=== PATIENT | female | born 1975 | race Hispanic/Latino ===

== ENCOUNTER 2017-04-08 02:04 | Emergency (ER) | payer SELFPAY ==
[2017-04-08] MEDS ORDERED: Fentanyl 100 MCG/2 ML VIAL ONE (02:37)
[2017-04-08] MEDS ORDERED: Ondansetron HCl/PF 4 MG/2 ML Vial ONE (02:37)
[2017-04-08 02:40] LABS: #Basophils 0.1 thou/uL (0.0-0.2); #Eosinphils 0.4 thou/uL (0.0-0.7); #Lymphocytes 3.5 thou/uL (1.20-3.40); #Monocytes 0.8 thou/uL (0.11-0.59); #Neutrophils 9.5 thou/uL (1.40-6.50); %Basophils 0.6 % (0.0-1.0); %Eosinophils 2.6 % (0.0-10.0); %Lymphocytes 24.7 % (21.0-51.0); %Monocytes 5.7 % (0.0-10.0); Hematocrit 36.1 % (36.0-47.0); Mean Platelet Volume 7.8 fL (7.4-10.4); Red Blood Cell (RBC) Count 4.05 mill/uL (4.20-5.40); White Blood Cell (WBC) Count 14.3 thou/uL (4.8-10.8)
[2017-04-08 02:54] LABS: ALT (SGPT) 22 U/L (8-55); AST (SGOT) 22 U/L (5-34); Alkaline Phosphatase 92 U/L (40-150); Anion Gap 14 mmol/L (10-20); BUN (Urea Nitrogen) 20 mg/dL (7.0-18.7); Bilirubin, Total 0.4 mg/dL (0.2-1.2); CK (CPK) 325 U/L (29-168); Calc. Creatinine Clearance 0 mL/min (70-130); Calcium 8.5 mg/dL (7.8-10.44); Carbon Dioxide 22 mmol/L (22-29); Chloride 107 mmol/L (98-107); Estimated GFR-MDRD Greater than 90; Globulin 3.2 g/dL (2.4-3.5); Lipase 26 U/L (8-78); Protein, Total 6.9 g/dL (6.0-8.3)
[2017-04-08 02:56] LABS: Troponin I Less than 0.010 ng/mL (< 0.028)
--- NOTE | 2017-04-08 08:20 | RAD ---
PORTABLE UPRIGHT FRONTAL CHEST RADIOGRAPH: Date: 04-08-17 Comparison: 11-25-16 History: Severe right upper quadrant pain. FINDINGS: No pneumothorax, pleural fluid, focal consolidation or alveolar edema. Heart and mediastinal contours are grossly unremarkable. No acute osseous abnormality. IMPRESSION: No acute findings. POS: [facility]
--- NOTE | 2017-04-08 09:10 | ULT ---
PRELIMINARY REPORT/[facility]/EMERGENCY AFTER HOURS PROCEDURE: EXAM: US Abdomen Limited, Right Upper Quadrant EXAM DATE/TIME: Exam ordered 04/08/2017 2:40 AM CLINICAL HISTORY: 41 years old, female; Pain and signs and symptoms; Nausea and vomiting; Abdominal pain; Localized; Ri ght upper quadrant (ruq) TECHNIQUE: Real-time ultrasound of the right upper quadrant with image documentation. COMPARISON: No relevant prior studies available. FINDINGS: Liver: Unremarkable. No mass. No intrahepatic bile duct dilation. Gallbladder: Normal contracted gallbladder. Sonographic Fung sign negative. No gallstones. Common bile duct: Unremarkable as visualized. No stones. No dilation. Pancreas: Unremarkable as visualized. Right kidney: Unremarkable. No stones. No solid mass. No hydronephrosis. IMPRESSION: No acute findings. Thank you for allowing us to participate in the care of your patient. Dictated and Authenticated by: Ja Gonzalez MD 04/08/2017 3:07 AM Central Time ([place] & [place]) FINAL REPORT RIGHT UPPER QUADRANT ULTRASOUND: Date: 04-08-17 Comparison: None. History: Right upper quadrant pain with nausea and vomiting. FINDINGS: Imaged pancreatic parenchyma appears unremarkable. There is no focal liver lesion or intrahepatic biliary dilatation noted. Right kidney measures 11.9 cm in craniocaudal dimension and demonstrates no stone, hydronephrosis or mass. Gallbladder is contracted. Gallbladder wall does not appear significantly thickened given the degree of contraction. The common duct measures 3 mm within normal limits. No gallstones or pericholecystic fluid. The registered associate reports a negative Fung's sign. IMPRESSION: No evidence for cholelithiasis, cholecystitis, or biliary dilatation. This report is in agreement with the preliminary [facility] report. Code QA. POS: [facility]
--- NOTE | 2017-04-08 09:12 | CT ---
PRELIMINARY REPORT/[facility]/EMERGENCY AFTER HOURS PROCEDURE: EXAM: CT Abdomen and Pelvis With Intravenous Contrast EXAM DATE/TIME: Exam ordered 04/08/2017 3:28 AM CLINICAL HISTORY: 41 years old, female; Pain; Abdominal pain; Localized; Right upper quadrant (ruq); Patient HX: . . . Pt with 2 hour history of severe ruq abdominal pain. Pain is sharp, constant, non radiating and 10/10 . 2 episodes of non bloody emesis since pain started. Patient tolerated po intake earlier today. Srinivasan es diarrhea. Iv contrast only TECHNIQUE: Axial computed tomography images of the abdomen and pelvis with intravenous contrast. Coronal reformatted images were created and reviewed. COMPARISON: US Gallbladder RUQ 2017-04-08 02:40 FINDINGS: Lower thorax: No acute findings. ABDOMEN: Liver: Unremarkable. No mass. Gallbladder and bile ducts: Normal contracted gallbladder. No calcified stones. No ductal dilation. Pancreas: Unremarkable. No mass. No ductal dilation. Spleen: Unremarkable. No splenomegaly. Adrenals: Unremarkable. No mass. Kidneys and ureters: 1 cm exophytic right renal lesion measures 30 Hounsfield units and is indetermin ate, likely a hyperdense cyst. No hydronephrosis. Stomach and bowel: Unremarkable. No obstruction. No mucosal thickening. Appendix: Normal appendix. PELVIS: Bladder: Unremarkable. No mass. Reproductive: Tampon in place in the vagina. ABDOMEN and PELVIS: Intraperitoneal space: Unremarkable. No free air. No significant fluid collection. Bones/joints: No acute fracture. No dislocation. Soft tissues: Unremarkable. Vasculature: Unremarkable. No abdominal aortic aneurysm. Lymph nodes: Unremarkable. No enlarged lymph nodes. IMPRESSION: No acute findings. Thank you for allowing us to participate in the care of your patient. Dictated and Authenticated by: Ja Gonzalez MD 04/08/2017 3:46 AM Central Time ([place] & [place]) FINAL REPORT EMERGENT AFTER HOURS CT ABDOMEN AND PELVIS WITH IV CONTRAST: Date: 04-08-17 History: Severe right upper quadrant abdominal pain. Patient states pain is sharp and constant and is non-radiating. IMPRESSION: 1. There is an increased density exophytic superior pole right renal lesion. This lesion was also see n on a noncontrasted CT abdomen and pelvis in 2012, 2013, as well as 2014. A similar measurement was obtained on prior exams. This is indeterminate due to very small size, but has not significantly bliss ged in size when compared to prior exams. 2. No acute findings are seen. 3. Findings are in agreement with preliminary report by [facility]. POS: [facility]
== END 2017-04-08 04:13 | disposition home or self-care (01) ==
LOC: ERS 02:04
DX: R10.11 Right upper quadrant pain (principal); G43.909 Migraine, unspecified, not intractable, without status migrainosus; F41.9 Anxiety disorder, unspecified; F32.9 Major depressive disorder, single episode, unspecified
CPT/HCPCS: 71010; 74177; 76705; 80053; 82553; 83690; 84484; 84703; 85025; 93005; 96361; 96374; 96375; J2405; J3010

== ENCOUNTER 2017-07-09 08:20 | Emergency (ER) | payer SELFPAY | END 2017-07-09 10:25 | disposition home or self-care (01) | LOC: ERS 08:20 | DX: N61.0 Mastitis without abscess (principal); N60.02 Solitary cyst of left breast; G43.909 Migraine, unspecified, not intractable, without status migrainosus; F41.9 Anxiety disorder, unspecified; F32.9 Major depressive disorder, single episode, unspecified | CPT/HCPCS: 99283 ==

== ENCOUNTER 2017-11-06 20:54 | Emergency (ER) | payer SELFPAY ==
[2017-11-06] MEDS ORDERED: Lorazepam 2 MG/ML VIAL ONE (21:17)
[2017-11-06 22:04] LABS: #Basophils 0.1 thou/uL (0.0-0.2); #Eosinphils 0.1 thou/uL (0.0-0.7); #Lymphocytes 3.2 thou/uL (1.20-3.40); #Monocytes 0.7 thou/uL (0.11-0.59); #Neutrophils 7.1 thou/uL (1.40-6.50); %Basophils 0.7 % (0.0-1.0); %Eosinophils 0.8 % (0.0-10.0); %Lymphocytes 28.9 % (21.0-51.0); %Monocytes 6.1 % (0.0-10.0); %Neutrophils 63.6 % (42.0-75.0); Hemoglobin 14.2 g/dL (12.0-16.0); Mean Corpuscular HGB CONC 32.9 g/dL (32.0-36.0); Mean Corpuscular Hemoglobin 27.5 pg (27.0-31.0); Mean Corpuscular Volume 83.7 fL (78.0-98.0); Mean Platelet Volume 8.1 fL (7.4-10.4); Platelet Count 300 thou/uL (130-400); Red Blood Cell (RBC) Count 5.16 mill/uL (4.20-5.40); White Blood Cell (WBC) Count 11.2 thou/uL (4.8-10.8)
[2017-11-06 22:16] LABS: ALT (SGPT) 26 U/L (8-55); AST (SGOT) 21 U/L (5-34); Albumin 4.5 g/dL (3.5-5.0); Alkaline Phosphatase 91 U/L (40-150); Anion Gap 14 mmol/L (10-20); BUN (Urea Nitrogen) 12 mg/dL (7.0-18.7); Bilirubin, Total 1.4 mg/dL (0.2-1.2); Calc. Creatinine Clearance 0 mL/min (70-130); Calcium 9.4 mg/dL (7.8-10.44); Carbon Dioxide 22 mmol/L (22-29); Chloride 107 mmol/L (98-107); Estimated GFR-MDRD 90; Globulin 3.6 g/dL (2.4-3.5); Glucose 96 mg/dL (70-105); Lipase 7 U/L (8-78); Potassium 3.3 mmol/L (3.5-5.1); Protein, Total 8.1 g/dL (6.0-8.3); Sodium 140 mmol/L (136-145)
[2017-11-06 22:17] LABS: CKMB 1.8 ng/mL (0-6.6); Troponin I Less than 0.010 ng/mL (< 0.028)
[2017-11-06 22:24] LABS: Bilirubin Small (Negative); Blood, Urine Negative (Negative); Clarity CLEAR (Clear); Glucose, Urine (Dipstick) Negative (Negative); Leukocyte Small (Negative); Nitrite Negative (Negative); Protein, Urine (Dipstick) 30 mg/dL (Neg-Trace); Specific Gravity, Urine 1.034 (1.002-1.036)
[2017-11-06 22:26] LABS: Bacteria/HPF None Seen HPF (None Seen)
[2017-11-06 22:28] LABS: Pathc Cast-AUWi Flag 3.48 (0-2.49)
[2017-11-06 22:34] LABS: Crystals/HPF None Seen HPF (Negative); Hyaline Casts/LPF 0-3 HYALINE CAST LPF (0-3 Hyaline); Yeast-All Forms None Seen HPF (None Seen)
--- NOTE | 2017-11-06 22:35 | RAD ---
RADIOGRAPH CHEST 1 VIEW: 11/06/17 HISTORY: 42-year-old female with dyspnea, chest pain, and cough. FINDINGS: There are no air space densities, pulmonary edema, pneumothorax, or cardiomegaly. The lateral costop hrenic angles are sharp. IMPRESSION: No acute cardiopulmonary findings. oscar [] POS: [facility]
== END 2017-11-07 00:01 | disposition home or self-care (01) ==
LOC: EEVIPCON 20:54 → ERS 20:54
DX: R07.89 Other chest pain (principal); N39.0 Urinary tract infection, site not specified; G43.909 Migraine, unspecified, not intractable, without status migrainosus; F41.9 Anxiety disorder, unspecified; F32.9 Major depressive disorder, single episode, unspecified
CPT/HCPCS: 71045; 80053; 81003; 81015; 82553; 83690; 84484; 85025; 93005; J2060

== ENCOUNTER 2018-07-05 20:30 | Inpatient (IN) | payer SELFPAY ==
[2018-07-05 21:27] LABS: #Lymphocytes 0.8 thou/uL (1.20-3.40); #Monocytes 0.8 thou/uL (0.11-0.59); %Basophils 0.4 % (0.0-1.0); %Eosinophils 0.1 % (0.0-10.0); %Lymphocytes 9.4 % (21.0-51.0); %Monocytes 9.3 % (0.0-10.0); %Neutrophils 80.8 % (42.0-75.0); Hemoglobin 12.8 g/dL (12.0-16.0); Mean Corpuscular HGB CONC 32.2 g/dL (32.0-36.0); Mean Corpuscular Hemoglobin 27.1 pg (27.0-31.0); Mean Platelet Volume 9.2 fL (7.4-10.4); Platelet Count 238 thou/uL (130-400); Red Blood Cell (RBC) Count 4.72 mill/uL (4.20-5.40); White Blood Cell (WBC) Count 8.6 thou/uL (4.8-10.8)
[2018-07-05] MEDS ORDERED: Ketorolac Tromethamine 30 MG/ML VIAL ONE (21:28)
--- NOTE | 2018-07-05 21:59 | RAD ---
PA AND LATERAL CHEST: HISTORY: Cough. Headache. Sore throat. Back pain. COMPARISON: 11/06/2017 FINDINGS: The heart size is normal. The lungs are well expanded without focal areas of consolidation, pneumoth oraces, or pleural effusions. No acute osseous abnormalities are seen. IMPRESSION: No radiographic evidence of acute cardiopulmonary process. POS: [facility]
[2018-07-05] MEDS ORDERED: Acetaminophen 500 MG TAB ONE (22:19)
[2018-07-05 22:35] LABS: Albumin 3.3 g/dL (3.5-5.0)
[2018-07-05 22:36] LABS: Chloride 110 mmol/L (98-107); Potassium 3.2 mmol/L (3.5-5.1); Sodium 137 mmol/L (136-145)
[2018-07-05 22:37] LABS: Calcium 7.5 mg/dL (7.8-10.44)
[2018-07-05 22:38] LABS: Globulin 2.4 g/dL (2.4-3.5); Glucose 91 mg/dL (70-105); Protein, Total 5.7 g/dL (6.0-8.3)
[2018-07-05 22:39] LABS: Anion Gap 13 mmol/L (10-20); Bilirubin, Total 0.3 mg/dL (0.2-1.2); Carbon Dioxide 17 mmol/L (22-29)
[2018-07-05 22:40] LABS: Alkaline Phosphatase 66 U/L (40-150)
[2018-07-05 22:41] LABS: Calc. Creatinine Clearance 0 mL/min (70-130); Estimated GFR-MDRD Greater than 90
[2018-07-05 22:42] LABS: BUN (Urea Nitrogen) 9 mg/dL (7.0-18.7)
[2018-07-05 22:43] LABS: AST (SGOT) 12 U/L (5-34)
[2018-07-05 22:44] LABS: ALT (SGPT) 9 U/L (8-55)
[2018-07-06] MEDS ORDERED: cefTRIAXone\\ROCEPHIN 2 GM VIAL ONE (01:48)
[2018-07-06] MEDS ORDERED: Oseltamivir 75 MG CAP PO SCH (02:00)
[2018-07-06 02:36] VITALS: BMI 31.8
[2018-07-06] MEDS: Acetaminophen 325 MG TAB PO PRN ×4 (02:54→20:16)
--- NOTE | 2018-07-06 09:05 | CT ---
PRELIMINARY REPORT/[facility]/EMERGENTY AFTER-HOURS PROCEDURE CT Head Without Contrast EXAM DATE/TIME: 07/06/2018 12:12 AM CLINICAL HISTORY: 43 years old, female; Signs and symptoms; Altered mental status/memory loss; Confusion or disorientat ion; Patient HX: F43 presents to the ed for evaluation of flu-like symptoms for he past x2 days. PT. States symptoms are associated with sore throat, rhinorrheas, ROGERS, body aches and back pain. PT. Reports taking ibuprofen without relief. PT. Also reports falling a couple days ago and now has pain shooting from left hip down to her foot. PT. Denies any recent travels or positive ill cont acts TECHNIQUE: Axial computed tomography images of the head/brain without contrast. COMPARISON: No relevant prior studies available. FINDINGS: Brain: Normal. Ventricles: Normal. Bones/joints: Normal. Sinuses: Frontal, ethmoid, and bilateral maxillary sinus disease. Mastoid air cells: Normal as visualized. Soft tissues: Unremarkable. IMPRESSION: No acute intracranial abnormality. Thank you for allowing us to participate in the care of your patient. Dictated and Authenticated by: Jason Sandoval MD 07/06/2018 12:47 AM Central Time ([place] & [place]) FINAL REPORT EMERGENCY AFTER HOURS CT BRAIN WITHOUT CONTRAST: Date: 07/06/18 FINDINGS/IMPRESSION: I agree with the findings and impression given in the preliminary report per [facility] physician. No evide nce of acute intracranial abnormality. POS: [facility]
[2018-07-06] MEDS: Azithromycin 500 MG in Sodium Chloride 0.9% 250 ML 250 ML IVPB SCH (11:49)
[2018-07-06 12:20] LABS: #Basophils 0.1 thou/uL (0.0-0.2); #Lymphocytes 1.3 thou/uL (1.20-3.40); #Monocytes 0.7 thou/uL (0.11-0.59); #Neutrophils 3.4 thou/uL (1.40-6.50); %Eosinophils 0.1 % (0.0-10.0); %Lymphocytes 23.2 % (21.0-51.0); %Monocytes 13.1 % (0.0-10.0); %Neutrophils 61.7 % (42.0-75.0); Hemoglobin 11.8 g/dL (12.0-16.0); Mean Corpuscular Hemoglobin 27.2 pg (27.0-31.0); Mean Corpuscular Volume 84.9 fL (78.0-98.0); Mean Platelet Volume 8.6 fL (7.4-10.4); Platelet Count 220 thou/uL (130-400); RBC Distribution Width 14.5 % (11.5-14.5); Red Blood Cell (RBC) Count 4.33 mill/uL (4.20-5.40); White Blood Cell (WBC) Count 5.4 thou/uL (4.8-10.8)
[2018-07-06] MEDS ORDERED: Diazepam 5 MG TAB PO PRN (12:35)
[2018-07-06 12:41] LABS: ALT (SGPT) 8 U/L (8-55); AST (SGOT) 13 U/L (5-34); Albumin 3.4 g/dL (3.5-5.0); Alkaline Phosphatase 67 U/L (40-150); Anion Gap 12 mmol/L (10-20); BUN (Urea Nitrogen) 6 mg/dL (7.0-18.7); Bilirubin, Direct 0.2 mg/dL (0.1-0.3); Bilirubin, Total 0.3 mg/dL (0.2-1.2); Calc. Creatinine Clearance 184 mL/min (70-130); Calcium 8.1 mg/dL (7.8-10.44); Carbon Dioxide 21 mmol/L (22-29); Chloride 109 mmol/L (98-107); Estimated GFR-MDRD Greater than 90; Globulin 2.5 g/dL (2.4-3.5); Glucose 105 mg/dL (70-105); Protein, Total 5.9 g/dL (6.0-8.3); Sodium 139 mmol/L (136-145)
[2018-07-06] MEDS ORDERED: Diazepam 5 MG TAB PO SCH (12:45)
[2018-07-06] MEDS ORDERED: Thiamine HCl 200 MG/2 ML VIAL IM SCH (12:45)
[2018-07-06 12:59] LABS: Syphilis Antibody Nonreactive (Nonreactive); Syphilis Antibody Index 0.06 S/CO (<1.00 Non-Reactive)
[2018-07-06 13:30] LABS: Medtox Reader # READER 1
[2018-07-06 13:31] LABS: Amphetamine Detected (NotDetected); Barbiturates Screen Not Detected (NotDetected); Benzodiazepine Screen Not Detected (NotDetected); Cocaine Metabolite Screen Not Detected (NotDetected); Medtox Control Line Valid? VALID (VALID); Methadone Not Detected (NotDetected); Methamphetamine Detected (NotDetected); Opiate Screen Not Detected (NotDetected); Oxycodone Screen Not Detected (NotDetected); Phencyclidine (PCP) Not Detected (NotDetected); THC/Cannabinoid Screen Not Detected (NotDetected); Tricyclic Screen Not Detected (NotDetected)
[2018-07-06] MEDS ORDERED: Potassium Chloride 20 MEQ TAB PO SCH (15:45)
--- NOTE | 2018-07-06 15:59 | HP ---
PRIMARY CARE PROVIDER: None. CHIEF COMPLAINT: Cough. HISTORY OF PRESENT ILLNESS: Ms. Philip is a pleasant 43-year-old lady, who was seen at [facility] on July 06, 2018. The patient is tearful at times and appears anxious. She reports that 2 days ago developed sore throat, rhinorrhea, headache and body aches. She denies any sick contacts. She is unable to describe headache and body aches further. The patient also reports that her cough is productive of greenish sputum over the last 2 days. REVIEW OF SYSTEMS: All other systems reviewed and found to be negative. PAST MEDICAL HISTORY: Migraines. SURGICAL HISTORY: section and bilateral breast surgery. PSYCHIATRIC HISTORY: Anxiety and depression. SOCIAL HISTORY: The patient is a former tobacco user. Her family reports that she drinks alcohol on a regular basis and also uses recreational drugs such as K2. FAMILY HISTORY: No family history of premature coronary artery disease. ALLERGIES: MORPHINE. CURRENT MEDICATIONS: None. PHYSICAL EXAMINATION: GENERAL: On examination, Ms. Philip is awake and alert, tearful. VITAL SIGNS: Pressure is 147/85, pulse 74, respiratory rate 20, and oxygen saturation 95% on room air. She is afebrile. EYES: No scleral icterus. No conjunctival pallor. ENT: Moist mucosal membranes. No oropharyngeal erythema or exudates. NECK: Supple, nontender, trachea is midline. RESPIRATORY: Accessory muscles of breathing are not active. Chest wall movements are symmetric bilaterally. Lungs are clear to auscultation without wheeze, rhonchi, or crepitations. CARDIOVASCULAR: S1 and S2 are heard, regular. Peripheral pulses palpable. No carotid bruit. No pericardial rub. ABDOMEN: Soft and nontender. Bowel sounds are heard. No hepatomegaly. No splenomegaly. SKIN: No rashes or subcutaneous nodules. LYMPHATIC: No cervical lymphadenopathy. NEUROLOGIC: Cranial nerves 2 through 12 intact, deep tendon reflexes 2+. MUSCULOSKELETAL: Power is 5/5 in all four extremities. PSYCHIATRIC: Normal mood and normal affect. The patient is oriented to person, place, and time. LABORATORY DATA: Ms. Philip's labs and investigations were reviewed. She had a chest x-ray, which did not show any pulmonary infiltrates. She also had a noncontrast CT scan of the brain, which did not show any acute intracranial abnormality. She has normal white count, normal hemoglobin, normal platelet count, normal sodium, decreased potassium of 3.2, creatinine 0.58, decreased albumin of 3.3, urine drug screen that is positive for amphetamines and methamphetamines and nonreactive syphilis serology. She had influenza screen, which is positive for influenza A virus. ASSESSMENT AND PLAN: Ms. Philip is a pleasant 43-year-old lady, who was seen at [facility] on July 06, 2018. Her problem list includes: 1. Influenza A infection: Ms. Philip is presenting with influenza A infection, for which she is being admitted to the hospital. We will continue her on Tamiflu. We will provide intravenous hydration. We will also start her on empiric antibiotics because of the possibility of superimposed infection, given her history of greenish sputum. 2. History of alcohol abuse: The patient will be started on ASE protocol. We will also start her on folic acid and multivitamins. We will also start her on thiamine. 3. Hypokalemia: We will replace potassium and recheck. 4. Recreational drug use: The patient has been counseled regarding cessation of alcohol and recreational drugs. 5. Ms. Philip is also presenting with acute metabolic encephalopathy. The patient was reportedly confused while in the emergency room. It is unclear whether acute metabolic encephalopathy was secondary to infection or recreational drug use. We will continue to monitor. LEVEL OF RISK: Moderate. LEVEL OF COMPLEXITY: Moderate. Job ID: [id number]
[2018-07-06] MEDS: Sodium Chloride 0.9% 1,000 ML IV SCH (16:01)
[2018-07-06 19:07] LABS: Pregnancy Test - Urine (BHCG) Negative (Negative); Pregu Control Background? CLEAR/WHITE (CLR/WHITE); Pregu Control Bar Appear? YES (CONTROL BAR); Specific Gravity 1.015 (1.002-1.036)
[2018-07-06] MEDS: Oseltamivir 75 MG CAP PO SCH (20:16)
[2018-07-06] MEDS: Ondansetron PF 4 MG/2 ML Vial IVP PRN (20:17)
[2018-07-07] MEDS: cefTRIAXone\\ROCEPHIN 1 GM in Sodium Chloride 0.9% 100 ML IVPB SCH (01:05)
[2018-07-07] MEDS: Acetaminophen 325 MG TAB PO PRN ×2 (01:59→20:49)
[2018-07-07] MEDS ORDERED: Diazepam 5 MG TAB PO PRN (04:00)
[2018-07-07] MEDS: Sodium Chloride 0.9% 1,000 ML IV SCH ×3 (05:41→20:58)
[2018-07-07] MEDS: Oseltamivir 75 MG CAP PO SCH ×2 (07:53→20:48)
[2018-07-07] MEDS: Folic Acid 1 MG TAB PO SCH (07:54)
[2018-07-07] MEDS: Magnesium Oxide 400 MG TAB PO SCH (07:54)
[2018-07-07] MEDS: Multivitamin W/ Minerals 1 TAB PO SCH (07:54)
[2018-07-07] MEDS: Thiamine 100 MG TAB PO SCH (07:54)
[2018-07-07] MEDS: Ondansetron PF 4 MG/2 ML Vial IVP PRN ×2 (07:55→20:49)
[2018-07-07] MEDS: Potassium Chloride 20 MEQ TAB PO SCH ×2 (09:09→11:53)
[2018-07-07] MEDS: Azithromycin 500 MG in Sodium Chloride 0.9% 250 ML 250 ML IVPB SCH (11:50)
--- NOTE | 2018-07-07 13:46 | PDOC.PN ---
- Subjective Encounter Start Date: 07/07/18 Encounter Start Time: 09:00 Pt seen for followup re: influenza A infection. More calm today, reports cough , sputum. - Objective MAR Reviewed: Yes Vital Signs & Weight: Vital Signs (12 hours) Temp Pulse Resp BP Pulse Ox 07/07/18 12:00 98 F 74 16 128/65 98 07/07/18 07:20 98.3 F 71 14 125/76 96 07/07/18 05:00 98.1 F 72 18 143/83 H 97 Weight Weight 191 lb I&O: 07/06/18 07/07/18 07/08/18 06:59 06:59 06:59 Intake Total 2000 240 Output Total 1000 Balance 1000 240 Result Diagrams: 07/06/18 11:50 07/06/18 11:50 Additional Labs: Labs reviewed by me Phys Exam - Physical Examination Obese HEENT: moist MMs, sclera anicteric, oral pharynx no lesions, 2+ tonsils Neck: no nodes, no JVD, supple, full ROM Respiratory: clear to auscultation bilateral Cardiovascular: RRR, no rub S1, s2 Gastrointestinal: soft, non-tender, no distention, positive bowel sounds Neurological: moves all 4 limbs Psychiatric: normal affect, A&O x 3 Dx/Plan (1) Influenza A Code(s): J10.1 - FLU DUE TO OTH IDENT INFLUENZA VIRUS W OTH RESP MANIFEST Status: Acute Comment: continue tamiflu (2) Hypokalemia Code(s): E87.6 - HYPOKALEMIA Status: Acute Comment: replace, recheck potassium (3) Alcohol abuse Code(s): F10.10 - ALCOHOL ABUSE, UNCOMPLICATED Status: Chronic Comment: continue ASE protocol, pt counseled re: cessation (4) Recreational drug use Code(s): F19.90 - OTHER PSYCHOACTIVE SUBSTANCE USE, UNSPECIFIED, UNCOMPLICATED Status: Chronic Comment: pt counseled re: cessation - Plan * . Review of Systems - Review of Systems Constitutional: negative: fever, chills, sweats, weakness, malaise Respiratory: Cough, Sputum. negative: Dry, Shortness of Breath, Hemoptysis, SOB with Excertion, Pleuritic Pain, Wheezing Cardiovascular: negative: chest pain, palpitations, orthopnea, paroxysmal nocturnal dyspnea, edema, light headedness Gastrointestinal: negative: Nausea, Vomiting, Abdominal Pain, Diarrhea, Constipation, Melena, Hematochezia Genitourinary: negative: Dysuria, Frequency, Incontinence, Hematuria, Retention Skin: negative: Rash, Lesions, Reese, Bruising - Medications/Allergies Allergies/Adverse Reactions: Allergies Allergy/AdvReac Type Severity Reaction Status Date / Time morphine Allergy Verified 07/06/18 02:50 Medications: Current Medications Acetaminophen (Tylenol) 650 mg PO Q4H PRN PRN Reason: Headache/Fever or Pain Last Admin: 07/07/18 01:59 Dose: 650 mg Benzonatate (Tessalon) 100 mg PO TIDPRN PRN PRN Reason: Cough Diazepam (Valium) 5 mg PO Q4H PRN PRN Reason: FOR ASE 10 OR GREATER Folic Acid (Folvite) 1 mg PO DAILY [facility] Last Admin: 07/07/18 07:54 Dose: 1 mg Azithromycin 500 mg/ Sodium (Chloride) 250 mls @ 250 mls/hr IVPB Q24HR [facility] Last Admin: 07/07/18 11:50 Dose: 250 mls Ceftriaxone Sodium 1 gm/ (Sodium Chloride) 100 mls @ 200 mls/hr IVPB Q24HR [facility] Last Admin: 07/07/18 01:05 Dose: 100 mls Sodium Chloride (Normal Saline 0.9%) 1,000 mls @ 75 mls/hr IV .[id number] [facility] Last Admin: 07/07/18 09:12 Dose: 1,000 mls Iron/Minerals/Multivitamins (Theragran M) 1 tab PO DAILY [facility] Last Admin: 07/07/18 07:54 Dose: 1 tab Magnesium Oxide (Magnesium Oxide) 400 mg PO DAILY [facility] Last Admin: 07/07/18 07:54 Dose: 400 mg Ondansetron HCl (Zofran) 4 mg IVP Q6H PRN PRN Reason: Nausea/Vomiting Last Admin: 07/07/18 07:55 Dose: 4 mg Oseltamivir Phosphate (Tamiflu) 75 mg PO BID [facility] Stop: 07/11/18 09:01 Last Admin: 07/07/18 07:53 Dose: 75 mg Sodium Chloride (Flush - Normal Saline) 10 ml IVF Q12HR [facility] Last Admin: 07/07/18 07:59 Dose: Not Given Sodium Chloride (Flush - Normal Saline) 10 ml IVF PRN PRN PRN Reason: Saline Flush Thiamine HCl (Thiamine) 100 mg PO DAILY [facility] Last Admin: 07/07/18 07:54 Dose: 100 mg
[2018-07-07] MEDS: Benzonatate 100 MG CAP PO PRN ×2 (13:54→20:48)
[2018-07-08] MEDS: cefTRIAXone\\ROCEPHIN 1 GM in Sodium Chloride 0.9% 100 ML IVPB SCH (01:39)
[2018-07-08] MEDS: Acetaminophen 325 MG TAB PO PRN ×3 (01:40→20:39)
[2018-07-08] MEDS: Sodium Chloride 0.9% 1,000 ML IV SCH ×2 (08:22→21:36)
[2018-07-08] MEDS: Magnesium Oxide 400 MG TAB PO SCH (08:23)
[2018-07-08] MEDS: Multivitamin W/ Minerals 1 TAB PO SCH (08:23)
[2018-07-08] MEDS: Thiamine 100 MG TAB PO SCH (08:23)
[2018-07-08] MEDS: Folic Acid 1 MG TAB PO SCH (08:23)
[2018-07-08] MEDS: Oseltamivir 75 MG CAP PO SCH ×2 (08:24→20:39)
[2018-07-08] MEDS: Benzonatate 100 MG CAP PO PRN ×2 (08:25→20:40)
[2018-07-08] MEDS: Azithromycin 500 MG in Sodium Chloride 0.9% 250 ML 250 ML IVPB SCH (10:53)
[2018-07-08] MEDS: Ondansetron PF 4 MG/2 ML Vial IVP PRN (11:55)
[2018-07-08] MEDS: ALPRAZolam 0.25 MG TAB PO PRN ×2 (11:55→20:40)
--- NOTE | 2018-07-08 12:29 | PDOC.PN ---
- Subjective Encounter Start Date: 07/08/18 Encounter Start Time: 08:40 Pt seen for followup re: influenza A infection. Mildly confused, reports anxiety. - Objective MAR Reviewed: Yes Vital Signs & Weight: Vital Signs (12 hours) Temp Pulse Resp BP BP Pulse Ox 07/08/18 08:09 97.6 F 55 L 18 144/88 H 96 07/08/18 08:00 96 07/08/18 04:00 98.3 F 71 18 129/89 129/89 98 Weight Weight 191 lb I&O: 07/07/18 07/08/18 07/09/18 06:59 06:59 06:59 Intake Total 1999 2840 360 Output Total 1000 Balance 1000 2840 360 Result Diagrams: 07/06/18 11:50 07/06/18 11:50 Additional Labs: labs reviewed by me Phys Exam - Physical Examination Constitutional: NAD HEENT: moist MMs Neck: supple Respiratory: clear to auscultation bilateral Cardiovascular: RRR Gastrointestinal: soft Neurological: moves all 4 limbs Deviation from normal: anxious, oriented to person and place only Dx/Plan (1) Influenza A Code(s): J10.1 - FLU DUE TO OTH IDENT INFLUENZA VIRUS W OTH RESP MANIFEST Status: Acute Comment: on tamiflu (2) Hypokalemia Code(s): E87.6 - HYPOKALEMIA Status: Acute Comment: check AM labs (3) Alcohol abuse Code(s): F10.10 - ALCOHOL ABUSE, UNCOMPLICATED Status: Chronic Comment: continue ASE protocol (4) Recreational drug use Code(s): F19.90 - OTHER PSYCHOACTIVE SUBSTANCE USE, UNSPECIFIED, UNCOMPLICATED Status: Chronic Comment: pt counseled re: cessation - Plan * . PRN Xanax for anxiety Review of Systems - Review of Systems Constitutional: weakness. negative: fever, chills, sweats, malaise Respiratory: negative: Cough, Shortness of Breath, SOB with Excertion, Pleuritic Pain, Wheezing Cardiovascular: negative: chest pain, palpitations, orthopnea, paroxysmal nocturnal dyspnea, edema, light headedness - Medications/Allergies Allergies/Adverse Reactions: Allergies Allergy/AdvReac Type Severity Reaction Status Date / Time morphine Allergy Verified 07/06/18 02:50 Medications: Current Medications Acetaminophen (Tylenol) 650 mg PO Q4H PRN PRN Reason: Headache/Fever or Pain Last Admin: 07/08/18 08:24 Dose: 650 mg Alprazolam (Xanax) 0.25 mg PO BIDPRN PRN PRN Reason: Anxiety Last Admin: 07/08/18 11:55 Dose: 0.25 mg Benzonatate (Tessalon) 100 mg PO TIDPRN PRN PRN Reason: Cough Last Admin: 07/08/18 08:25 Dose: 100 mg Diazepam (Valium) 5 mg PO Q4H PRN PRN Reason: FOR ASE 10 OR GREATER Folic Acid (Folvite) 1 mg PO DAILY [facility] Last Admin: 07/08/18 08:23 Dose: 1 mg Azithromycin 500 mg/ Sodium (Chloride) 250 mls @ 250 mls/hr IVPB Q24HR [facility] Last Admin: 07/08/18 10:53 Dose: 250 mls Ceftriaxone Sodium 1 gm/ (Sodium Chloride) 100 mls @ 200 mls/hr IVPB Q24HR [facility] Last Admin: 07/08/18 01:39 Dose: 100 mls Sodium Chloride (Normal Saline 0.9%) 1,000 mls @ 75 mls/hr IV .[id number] [facility] Last Admin: 07/08/18 08:22 Dose: 1,000 mls Iron/Minerals/Multivitamins (Theragran M) 1 tab PO DAILY [facility] Last Admin: 07/08/18 08:23 Dose: 1 tab Magnesium Oxide (Magnesium Oxide) 400 mg PO DAILY [facility] Last Admin: 07/08/18 08:23 Dose: 400 mg Ondansetron HCl (Zofran) 4 mg IVP Q6H PRN PRN Reason: Nausea/Vomiting Last Admin: 07/08/18 11:55 Dose: 4 mg Oseltamivir Phosphate (Tamiflu) 75 mg PO BID [facility] Stop: 07/11/18 09:01 Last Admin: 07/08/18 08:24 Dose: 75 mg Sodium Chloride (Flush - Normal Saline) 10 ml IVF Q12HR [facility] Last Admin: 07/08/18 08:29 Dose: Not Given Sodium Chloride (Flush - Normal Saline) 10 ml IVF PRN PRN PRN Reason: Saline Flush Thiamine HCl (Thiamine) 100 mg PO DAILY [facility] Last Admin: 07/08/18 08:23 Dose: 100 mg
[2018-07-09] MEDS: cefTRIAXone\\ROCEPHIN 1 GM in Sodium Chloride 0.9% 100 ML IVPB SCH (02:42)
[2018-07-09] MEDS: Sodium Chloride 0.9% 1,000 ML IV SCH ×3 (05:56→23:32)
[2018-07-09 06:39] LABS: #Basophils 0.1 thou/uL (0.0-0.2); #Lymphocytes 2.2 thou/uL (1.20-3.40); #Monocytes 0.6 thou/uL (0.11-0.59); #Neutrophils 3.8 thou/uL (1.40-6.50); %Basophils 0.9 % (0.0-1.0); %Eosinophils 0.6 % (0.0-10.0); %Lymphocytes 32.3 % (21.0-51.0); %Monocytes 9.4 % (0.0-10.0); %Neutrophils 56.8 % (42.0-75.0); Hemoglobin 11.7 g/dL (12.0-16.0); Mean Corpuscular HGB CONC 30.9 g/dL (32.0-36.0); Mean Corpuscular Hemoglobin 26.7 pg (27.0-31.0); Mean Corpuscular Volume 86.3 fL (78.0-98.0); Mean Platelet Volume 8.7 fL (7.4-10.4); Platelet Count 211 thou/uL (130-400); RBC Distribution Width 14.5 % (11.5-14.5); Red Blood Cell (RBC) Count 4.39 mill/uL (4.20-5.40); White Blood Cell (WBC) Count 6.7 thou/uL (4.8-10.8)
[2018-07-09 07:11] LABS: Anion Gap 9 mmol/L (10-20); BUN (Urea Nitrogen) Less than 4 mg/dL (7.0-18.7); Calc. Creatinine Clearance 174 mL/min (70-130); Calcium 8.4 mg/dL (7.8-10.44); Carbon Dioxide 25 mmol/L (22-29); Chloride 111 mmol/L (98-107); Estimated GFR-MDRD Greater than 90; Glucose 94 mg/dL (70-105); Potassium 3.8 mmol/L (3.5-5.1); Sodium 141 mmol/L (136-145)
[2018-07-09] MEDS: Folic Acid 1 MG TAB PO SCH (08:42)
[2018-07-09] MEDS: Oseltamivir 75 MG CAP PO SCH ×2 (08:42→20:53)
[2018-07-09] MEDS: Multivitamin W/ Minerals 1 TAB PO SCH (08:42)
[2018-07-09] MEDS: Thiamine 100 MG TAB PO SCH (08:42)
[2018-07-09] MEDS: Magnesium Oxide 400 MG TAB PO SCH (08:42)
[2018-07-09] MEDS: Azithromycin 500 MG in Sodium Chloride 0.9% 250 ML 250 ML IVPB SCH (10:31)
[2018-07-09] MEDS: Benzonatate 100 MG CAP PO PRN (15:22)
--- NOTE | 2018-07-09 16:19 | PDOC.PN ---
- Subjective Encounter Start Date: 07/09/18 Encounter Start Time: 14:00 Pt seen for followup re: influenza A. feels better. - Objective MAR Reviewed: Yes Vital Signs & Weight: Vital Signs (12 hours) Temp Pulse Resp BP BP Pulse Ox 07/09/18 12:00 98.1 F 76 17 148/83 H 147/96 H 95 07/09/18 08:00 148/83 H 95 07/09/18 07:42 98.1 F 86 16 148/83 H 95 Weight Weight 191 lb I&O: 07/08/18 07/09/18 07/10/18 06:59 06:59 06:59 Intake Total 2840 2240 Balance 2840 2240 Result Diagrams: 07/09/18 06:09 07/09/18 06:09 Additional Labs: labs reviewed by me Phys Exam - Physical Examination Constitutional: NAD HEENT: moist MMs Neck: supple Respiratory: clear to auscultation bilateral Cardiovascular: RRR Gastrointestinal: soft Neurological: moves all 4 limbs Psychiatric: normal affect Dx/Plan (1) Influenza A Code(s): J10.1 - FLU DUE TO OTH IDENT INFLUENZA VIRUS W OTH RESP MANIFEST Status: Acute Comment: continue tamiflu (2) Alcohol abuse Code(s): F10.10 - ALCOHOL ABUSE, UNCOMPLICATED Status: Chronic Comment: on ASE protocol (3) Recreational drug use Code(s): F19.90 - OTHER PSYCHOACTIVE SUBSTANCE USE, UNSPECIFIED, UNCOMPLICATED Status: Chronic Comment: pt counseled re: cessation (4) Hypokalemia Code(s): E87.6 - HYPOKALEMIA Status: Resolved - Plan * . Review of Systems - Review of Systems Respiratory: Cough, Dry Cardiovascular: negative: chest pain, palpitations, orthopnea, paroxysmal nocturnal dyspnea, edema, light headedness Gastrointestinal: negative: Nausea, Vomiting, Abdominal Pain, Diarrhea, Constipation, Melena, Hematochezia - Medications/Allergies Allergies/Adverse Reactions: Allergies Allergy/AdvReac Type Severity Reaction Status Date / Time morphine Allergy Verified 07/06/18 02:50 Medications: Current Medications Acetaminophen (Tylenol) 650 mg PO Q4H PRN PRN Reason: Headache/Fever or Pain Last Admin: 07/08/18 20:39 Dose: 650 mg Alprazolam (Xanax) 0.25 mg PO BIDPRN PRN PRN Reason: Anxiety Last Admin: 07/08/18 20:40 Dose: 0.25 mg Benzonatate (Tessalon) 100 mg PO TIDPRN PRN PRN Reason: Cough Last Admin: 07/09/18 15:22 Dose: 100 mg Diazepam (Valium) 5 mg PO Q4H PRN PRN Reason: FOR ASE 10 OR GREATER Folic Acid (Folvite) 1 mg PO DAILY [facility] Last Admin: 07/09/18 08:42 Dose: 1 mg Azithromycin 500 mg/ Sodium (Chloride) 250 mls @ 250 mls/hr IVPB Q24HR [facility] Last Admin: 07/09/18 10:31 Dose: 250 mls Ceftriaxone Sodium 1 gm/ (Sodium Chloride) 100 mls @ 200 mls/hr IVPB Q24HR [facility] Last Admin: 07/09/18 02:42 Dose: 100 mls Sodium Chloride (Normal Saline 0.9%) 1,000 mls @ 75 mls/hr IV .[id number] [facility] Last Admin: 07/09/18 05:56 Dose: 1,000 mls Iron/Minerals/Multivitamins (Theragran M) 1 tab PO DAILY [facility] Last Admin: 07/09/18 08:42 Dose: 1 tab Magnesium Oxide (Magnesium Oxide) 400 mg PO DAILY [facility] Last Admin: 07/09/18 08:42 Dose: 400 mg Ondansetron HCl (Zofran) 4 mg IVP Q6H PRN PRN Reason: Nausea/Vomiting Last Admin: 07/08/18 11:55 Dose: 4 mg Oseltamivir Phosphate (Tamiflu) 75 mg PO BID [facility] Stop: 07/11/18 09:01 Last Admin: 07/09/18 08:42 Dose: 75 mg Sodium Chloride (Flush - Normal Saline) 10 ml IVF Q12HR [facility] Last Admin: 07/09/18 08:42 Dose: 10 ml Sodium Chloride (Flush - Normal Saline) 10 ml IVF PRN PRN PRN Reason: Saline Flush Thiamine HCl (Thiamine) 100 mg PO DAILY [facility] Last Admin: 07/09/18 08:42 Dose: 100 mg
[2018-07-09] MEDS: ALPRAZolam 0.25 MG TAB PO PRN (17:53)
[2018-07-10] MEDS: cefTRIAXone\\ROCEPHIN 1 GM in Sodium Chloride 0.9% 100 ML IVPB SCH (03:02)
[2018-07-10] MEDS: Acetaminophen 325 MG TAB PO PRN ×2 (03:03→20:46)
[2018-07-10 06:36] LABS: #Eosinphils 0.1 thou/uL (0.0-0.7); #Lymphocytes 2.7 thou/uL (1.20-3.40); #Monocytes 0.7 thou/uL (0.11-0.59); #Neutrophils 5.1 thou/uL (1.40-6.50); %Basophils 0.3 % (0.0-1.0); %Eosinophils 0.7 % (0.0-10.0); %Lymphocytes 31.1 % (21.0-51.0); %Neutrophils 59.9 % (42.0-75.0); Hemoglobin 10.7 g/dL (12.0-16.0); Mean Corpuscular HGB CONC 31.1 g/dL (32.0-36.0); Mean Corpuscular Hemoglobin 26.5 pg (27.0-31.0); Mean Corpuscular Volume 85.3 fL (78.0-98.0); Mean Platelet Volume 8.6 fL (7.4-10.4); Platelet Count 219 thou/uL (130-400); RBC Distribution Width 14.3 % (11.5-14.5); Red Blood Cell (RBC) Count 4.03 mill/uL (4.20-5.40); White Blood Cell (WBC) Count 8.5 thou/uL (4.8-10.8)
[2018-07-10 06:55] LABS: Anion Gap 12 mmol/L (10-20); BUN (Urea Nitrogen) 5 mg/dL (7.0-18.7); Calc. Creatinine Clearance 187 mL/min (70-130); Calcium 8.2 mg/dL (7.8-10.44); Carbon Dioxide 23 mmol/L (22-29); Chloride 110 mmol/L (98-107); Estimated GFR-MDRD Greater than 90; Glucose 89 mg/dL (70-105); Potassium 3.5 mmol/L (3.5-5.1); Sodium 141 mmol/L (136-145)
[2018-07-10] MEDS: Thiamine 100 MG TAB PO SCH (09:47)
[2018-07-10] MEDS: Multivitamin W/ Minerals 1 TAB PO SCH (09:47)
[2018-07-10] MEDS: Oseltamivir 75 MG CAP PO SCH ×2 (09:47→20:46)
[2018-07-10] MEDS: Magnesium Oxide 400 MG TAB PO SCH (09:47)
[2018-07-10] MEDS: Folic Acid 1 MG TAB PO SCH (09:47)
[2018-07-10] MEDS: Azithromycin 500 MG in Sodium Chloride 0.9% 250 ML 250 ML IVPB SCH (09:51)
[2018-07-10] MEDS ORDERED: Loperamide HCl 2 MG CAP PO PRN (14:20)
--- NOTE | 2018-07-10 14:28 | PDOC.PN ---
- Subjective Encounter Start Date: 07/10/18 Encounter Start Time: 09:20 Pt seen for followup re: influenza A. c/o diarrhea, SOBOE. - Objective MAR Reviewed: Yes Vital Signs & Weight: Vital Signs (12 hours) Temp Pulse Resp BP BP Pulse Ox 07/10/18 08:00 140/87 97 07/10/18 07:53 98.3 F 55 L 16 140/87 97 Weight Weight 191 lb I&O: 07/09/18 07/10/18 07/11/18 06:59 06:59 06:59 Intake Total 2240 Balance 2240 Result Diagrams: 07/10/18 06:10 07/10/18 06:10 Additional Labs: Labs reviewed by me Phys Exam - Physical Examination Constitutional: NAD HEENT: moist MMs Neck: supple Nithin crackles Cardiovascular: RRR Gastrointestinal: soft Neurological: moves all 4 limbs Psychiatric: normal affect Dx/Plan (1) Influenza A Code(s): J10.1 - FLU DUE TO OTH IDENT INFLUENZA VIRUS W OTH RESP MANIFEST Status: Acute Comment: on tamiflu (2) Diarrhea Code(s): R19.7 - DIARRHEA, UNSPECIFIED Status: Acute Comment: C. diff negative, start Imodium (3) Volume overload Code(s): E87.70 - FLUID OVERLOAD, UNSPECIFIED Status: Acute Comment: trial furosemide (4) Alcohol abuse Code(s): F10.10 - ALCOHOL ABUSE, UNCOMPLICATED Status: Chronic Comment: on ASE protocol (5) Recreational drug use Code(s): F19.90 - OTHER PSYCHOACTIVE SUBSTANCE USE, UNSPECIFIED, UNCOMPLICATED Status: Chronic Comment: pt counseled re: cessation (6) Hypokalemia Code(s): E87.6 - HYPOKALEMIA Status: Resolved - Plan * . Review of Systems - Review of Systems Respiratory: SOB with Excertion. negative: Cough, Shortness of Breath, Pleuritic Pain, Wheezing Cardiovascular: negative: chest pain, palpitations, orthopnea, paroxysmal nocturnal dyspnea, edema, light headedness Gastrointestinal: Diarrhea - Medications/Allergies Allergies/Adverse Reactions: Allergies Allergy/AdvReac Type Severity Reaction Status Date / Time morphine Allergy Verified 07/06/18 02:50 Medications: Current Medications Acetaminophen (Tylenol) 650 mg PO Q4H PRN PRN Reason: Headache/Fever or Pain Last Admin: 07/10/18 03:03 Dose: 650 mg Alprazolam (Xanax) 0.25 mg PO BIDPRN PRN PRN Reason: Anxiety Last Admin: 07/09/18 17:53 Dose: 0.25 mg Benzonatate (Tessalon) 100 mg PO TIDPRN PRN PRN Reason: Cough Last Admin: 07/09/18 15:22 Dose: 100 mg Cefdinir (Omnicef) 300 mg PO BID [facility] Cefdinir (Omnicef) 300 mg PO ONE [facility] Diazepam (Valium) 5 mg PO Q4H PRN PRN Reason: FOR ASE 10 OR GREATER Folic Acid (Folvite) 1 mg PO DAILY [facility] Last Admin: 07/10/18 09:47 Dose: 1 mg Furosemide (Lasix) 40 mg SLOW IVP ONE [facility] Iron/Minerals/Multivitamins (Theragran M) 1 tab PO DAILY [facility] Last Admin: 07/10/18 09:47 Dose: 1 tab Loperamide HCl (Imodium) 4 mg PO ONE [facility] Loperamide HCl (Imodium) 2 mg PO PRN PRN PRN Reason: Diarrhea/Loose Stools Magnesium Oxide (Magnesium Oxide) 400 mg PO DAILY [facility] Last Admin: 07/10/18 09:47 Dose: 400 mg Ondansetron HCl (Zofran) 4 mg IVP Q6H PRN PRN Reason: Nausea/Vomiting Last Admin: 07/08/18 11:55 Dose: 4 mg Oseltamivir Phosphate (Tamiflu) 75 mg PO BID [facility] Stop: 07/11/18 09:01 Last Admin: 07/10/18 09:47 Dose: 75 mg Saccharomyces Boulardii (Florastor) 250 mg PO DAILY [facility] Saccharomyces Boulardii (Florastor) 250 mg PO ONE [facility] Sodium Chloride (Flush - Normal Saline) 10 ml IVF Q12HR [facility] Last Admin: 07/10/18 09:47 Dose: Not Given Sodium Chloride (Flush - Normal Saline) 10 ml IVF PRN PRN PRN Reason: Saline Flush Thiamine HCl (Thiamine) 100 mg PO DAILY [facility] Last Admin: 07/10/18 09:47 Dose: 100 mg
[2018-07-10] MEDS ORDERED: Loperamide HCl 2 MG CAP PO SCH (14:30)
[2018-07-10] MEDS ORDERED: Saccharomyces boulardii 250 MG CAP PO SCH (14:30)
[2018-07-10] MEDS ORDERED: Cefdinir 300 MG CAP PO SCH (14:30)
[2018-07-10] MEDS ORDERED: Furosemide 40 MG/4 ML VIAL SLOW IVP SCH (14:30)
[2018-07-10] MEDS: Sodium Chloride 0.9% 1,000 ML IV SCH (15:41)
[2018-07-10] MEDS: Cefdinir 300 MG CAP PO SCH (20:46)
[2018-07-10] MEDS: ALPRAZolam 0.25 MG TAB PO PRN (20:47)
[2018-07-11 05:38] LABS: #Basophils 0.1 thou/uL (0.0-0.2); #Eosinphils 0.1 thou/uL (0.0-0.7); #Lymphocytes 2.9 thou/uL (1.20-3.40); #Monocytes 0.6 thou/uL (0.11-0.59); #Neutrophils 3.5 thou/uL (1.40-6.50); %Basophils 1.3 % (0.0-1.0); %Eosinophils 1.3 % (0.0-10.0); %Lymphocytes 40.3 % (21.0-51.0); %Monocytes 8.3 % (0.0-10.0); %Neutrophils 48.8 % (42.0-75.0); Hemoglobin 11.6 g/dL (12.0-16.0); Mean Corpuscular HGB CONC 30.7 g/dL (32.0-36.0); Mean Corpuscular Hemoglobin 26.1 pg (27.0-31.0); Mean Corpuscular Volume 84.9 fL (78.0-98.0); Mean Platelet Volume 8.4 fL (7.4-10.4); Platelet Count 266 thou/uL (130-400); RBC Distribution Width 14.3 % (11.5-14.5); Red Blood Cell (RBC) Count 4.43 mill/uL (4.20-5.40); White Blood Cell (WBC) Count 7.1 thou/uL (4.8-10.8)
[2018-07-11 06:21] LABS: Anion Gap 12 mmol/L (10-20); BUN (Urea Nitrogen) 10 mg/dL (7.0-18.7); Calc. Creatinine Clearance 168 mL/min (70-130); Calcium 8.6 mg/dL (7.8-10.44); Carbon Dioxide 25 mmol/L (22-29); Chloride 108 mmol/L (98-107); Estimated GFR-MDRD Greater than 90; Glucose 92 mg/dL (70-105); Potassium 3.8 mmol/L (3.5-5.1); Sodium 141 mmol/L (136-145)
[2018-07-11] MEDS: Magnesium Oxide 400 MG TAB PO SCH (08:45)
[2018-07-11] MEDS: Folic Acid 1 MG TAB PO SCH (08:46)
[2018-07-11] MEDS: Thiamine 100 MG TAB PO SCH (08:46)
[2018-07-11] MEDS: Multivitamin W/ Minerals 1 TAB PO SCH (08:46)
[2018-07-11] MEDS: Cefdinir 300 MG CAP PO SCH (08:46)
[2018-07-11] MEDS: Oseltamivir 75 MG CAP PO SCH (08:46)
[2018-07-11] MEDS ORDERED: Saccharomyces boulardii 250 MG CAP PO SCH (09:00)
[2018-07-11 13:10] VITALS: BP 125/79; TEMP 98.2
--- NOTE | 2018-07-11 15:13 | DIS ---
DATE OF ADMISSION: 07/06/2018 DATE OF DISCHARGE: 07/11/2018 PRIMARY CARE PROVIDER: None. DISCHARGE DIAGNOSES: 1. Influenza A infection. 2. Alcohol withdrawal. 3. Hypokalemia. 4. Diarrhea. 5. Volume overload. 6. Suspected acute bronchitis. 7. Acute metabolic encephalopathy. CONDITION OF PATIENT ON THE DAY OF DISCHARGE: Stable. I assessed Ms. Philip on the day of discharge. She denies any chest pain or shortness of breath. Vital signs are stable. S1 and S2 are heard, regular. Lungs are clear to auscultation bilaterally. DISCHARGE MEDICATIONS: 1. Cefdinir 300 mg 2 times a day for 5 days. 2. Thiamine 100 mg daily. HOSPITAL COURSE: Ms. Philip is a pleasant 43-year-old lady, who was admitted to [facility] on July 06, 2018, for influenza A infection. She also has a history of alcohol abuse and was started on ASE protocol. She was hypokalemic and had potassium replacement. She was also confused, from acute metabolic encephalopathy, most likely secondary to infection. There was also suspicion of superimposed bacterial acute bronchitis and she was started on intravenous antibiotics. She improved with Tamiflu and antibiotics. She also received intravenous fluids and developed volume overload. This improved after she received diuretics. She also had diarrhea towards the end of hospitalization. Stool Clostridium difficile test was negative. She improved with Imodium. She is being discharged home in a stable condition. She has been advised to stop alcohol and recreational drug use. On the day of discharge, she had white count 7100, hemoglobin 11.6, and platelet count 266,000. Sodium of 141, potassium 3.8, and creatinine 0.59. She had nonreactive syphilis serologies during this hospitalization. Urine toxicology screen at the time of admission was positive for amphetamines and methamphetamines. Urine test was negative during this hospitalization. Many thanks for allowing me to participate in Ms. Philip is care. Please feel free to contact me with any questions or concerns. DISCHARGE DESTINATION: Home. TOTAL AMOUNT OF TIME SPENT COORDINATING THIS DISCHARGE: 32 minutes. Job ID: [id number]
== END 2018-07-11 15:22 | disposition home or self-care (01) | DRG 865 ==
LOC: ERS 20:30 → SURG A 07-06 00:19 → OBSVTOIN 07-06 00:19 → T4-B 07-06 23:33
PROVIDERS: ADMIT Hospitalist; ATTEND Hospitalist
DX: J10.81 Influenza due to other identified influenza virus with encephalopathy (principal); G93.41 Metabolic encephalopathy; F10.239 Alcohol dependence with withdrawal, unspecified; E87.70 Fluid overload, unspecified; J10.1 Influenza due to other identified influenza virus with other respiratory manifestations; E87.6 Hypokalemia; F41.9 Anxiety disorder, unspecified; F32.9 Major depressive disorder, single episode, unspecified; R19.7 Diarrhea, unspecified; G43.909 Migraine, unspecified, not intractable, without status migrainosus; J20.9 Acute bronchitis, unspecified; Z88.5 Allergy status to narcotic agent
CPT/HCPCS: 36415; 70450; 71046; 80048; 80053; 80306; 81025; 82248; 83605; 84145; 85025; 86780; 87040; 87081; 87324; 87430; 87449; 87804; 96361; 96374; 96375; J0456; J0696; J1885; J1940; J2405; J3411; J3475; J7050

== ENCOUNTER 2019-11-30 20:36 | Emergency (ER) | payer SELFPAY | END 2019-11-30 21:08 | disposition home or self-care (01) | LOC: ERS 20:36 | DX: N61.1 Abscess of the breast and nipple (principal); F41.9 Anxiety disorder, unspecified; F32.9 Major depressive disorder, single episode, unspecified; G43.909 Migraine, unspecified, not intractable, without status migrainosus; Z87.891 Personal history of nicotine dependence | CPT/HCPCS: 99283 ==

== ENCOUNTER 2021-05-27 12:37 | Emergency (ER) | payer SELFPAY ==
[2021-05-27 15:18] LABS: Bilirubin Negative (Negative); Blood, Urine 3+ (Negative); Clarity Turbid (Clear); Glucose, Urine (Dipstick) Normal (Negative); Ketone, Urine Negative (Negative); Leukocyte Negative Leu/uL (Negative); Nitrite Negative (Negative); Protein, Urine (Dipstick) 30 mg/dL (Neg-Trace); RBC/HPF Greater than 50 HPF (0-3); Specific Gravity, Urine 1.028 (1.002-1.036); Urobilinogen Normal mg/dL (Less than 2)
[2021-05-27 15:28] LABS: Bacteria/HPF 1+ HPF (None Seen); WBC/HPF 0-3 HPF (0-3)
[2021-05-27 22:22] LABS: SARS-CoV-2 PCR by NAA DETECTED (NotDetected)
== END 2021-05-27 15:35 | disposition home or self-care (01) ==
LOC: ERS 12:37
DX: U07.1 COVID-19 (principal); G43.909 Migraine, unspecified, not intractable, without status migrainosus; Z87.891 Personal history of nicotine dependence
CPT/HCPCS: 81003; 81015; 99283; U0003; U0005

== ENCOUNTER 2022-04-19 14:33 | Emergency (ER) | payer OTHER ==
[~2022-04-19 14:33] MED LIST: Iopamidol-370 76% 500 ML 1 ML ONE
[2022-04-19] MEDS ORDERED: FENTANYL 50 MCG/ML 1 ML VIAL ONE (15:23)
[2022-04-19 15:30] LABS: #Eosinphils 0.2 thou/uL (0.0-0.7); #Lymphocytes 2.5 thou/uL (1.20-3.40); #Monocytes 0.4 thou/uL (0.11-0.59); #Neutrophils 4.9 thou/uL (1.40-6.50); %Basophils 0.5 % (0.0-1.0); %Eosinophils 2.9 % (0.0-10.0); %Lymphocytes 31.3 % (21.0-51.0); %Monocytes 4.6 % (0.0-10.0); %Neutrophils 60.8 % (42.0-75.0); Hemoglobin 12.9 g/dL (12.0-16.0); Mean Corpuscular HGB CONC 32.1 g/dL (32.0-36.0); Mean Corpuscular Hemoglobin 27.4 pg (27.0-31.0); Mean Corpuscular Volume 85.4 fl (78.0-98.0); Platelet Count 343 10x3/uL (130-400); RBC Distribution Width 13.2 % (11.5-14.5); Red Blood Cell (RBC) Count 4.71 mill/uL (4.20-5.40); White Blood Cell (WBC) Count 8.1 10x3/uL (4.8-10.8)
[2022-04-19 15:44] LABS: BHCG - Serum Negative (NEGATIVE); Pregs Control Background? CLEAR/WHITE (CLR/WHITE); Pregs Control Bar Appear? YES (CONTROL BAR)
[2022-04-19 15:46] LABS: INR-International Normal Ratio 0.9; PTT 30.9 sec (22.9-36.1); Prothrombin Time 12.2 sec (12.0-14.7)
[2022-04-19 15:50] LABS: ALT (SGPT) 41 U/L (8-55); AST (SGOT) 23 U/L (5-34); Albumin 4.1 g/dL (3.5-5.0); Alkaline Phosphatase 98 U/L (40-110); Anion Gap 11 mmol/L (10-20); BUN (Urea Nitrogen) 12 mg/dL (7.0-18.7); Bilirubin, Total 0.5 mg/dL (0.2-1.2); Calc. Creatinine Clearance 0 mL/min (70-130); Calcium 9.1 mg/dL (7.8-10.44); Carbon Dioxide 23 mmol/L (22-29); Chloride 106 mmol/L (98-107); Estimated GFR 109; Globulin 3.5 g/dL (2.4-3.5); Glucose 115 mg/dL (70-105); Lipase 14 U/L (8-78); Potassium 4.1 mmol/L (3.5-5.1); Protein, Total 7.6 g/dL (6.0-8.3); Sodium 136 mmol/L (136-145)
== END 2022-04-19 17:40 | disposition home or self-care (01) ==
LOC: ERS 14:33
DX: S13.4XXA Sprain of ligaments of cervical spine, initial encounter (principal); V89.2XXA Person injured in unspecified motor-vehicle accident, traffic, initial encounter; Z87.891 Personal history of nicotine dependence
CPT/HCPCS: 36415; 70450; 71260; 72125; 74177; 80053; 83690; 84703; 85025; 85610; 85730; 94760; 96374; J3010; Q9967

== ENCOUNTER 2022-08-15 23:45 | Inpatient (IN) | payer OTHER, SELFPAY ==
[2022-08-15] MEDS ORDERED: fentaNYL 50 mcg/mL 1 mL Vial ONE (23:51)
[2022-08-15] MEDS ORDERED: Ondansetron PF 4 MG/2 ML Vial ONE (23:52)
[2022-08-16 00:15] LABS: #Basophils 0.1 thou/uL (0.0-0.2); #Eosinphils 0.3 thou/uL (0.0-0.7); #Lymphocytes 2.9 thou/uL (1.20-3.40); #Monocytes 0.5 thou/uL (0.11-0.59); #Neutrophils 6.2 thou/uL (1.40-6.50); %Basophils 0.8 % (0.0-1.0); %Lymphocytes 28.9 % (21.0-51.0); %Monocytes 4.6 % (0.0-10.0); %Neutrophils 62.7 % (42.0-75.0); Hemoglobin 13.9 g/dL (12.0-16.0); Mean Corpuscular HGB CONC 33.4 g/dL (32.0-36.0); Mean Corpuscular Hemoglobin 28.4 pg (27.0-31.0); Mean Platelet Volume 8.1 fL (7.4-10.4); Platelet Count 279 10x3/uL (130-400); RBC Distribution Width 13.6 % (11.5-14.5); White Blood Cell (WBC) Count 9.9 10x3/uL (4.8-10.8)
[2022-08-16 00:18] LABS: BHCG - Serum Negative (NEGATIVE); Pregs Control Background? CLEAR/WHITE (CLR/WHITE); Pregs Control Bar Appear? YES (CONTROL BAR)
[2022-08-16] MEDS ORDERED: fentaNYL 50 mcg/mL 1 mL Vial ONE ×3 (00:25→01:18)
[2022-08-16] MEDS ORDERED: CEFAZOLIN 2 GM VIAL ONE ×2 (00:30→09:37)
[2022-08-16] MEDS ORDERED: Boostrix 0.5 ML (Tdap) VIAL (>/=7 yrs of age) ONE (00:30)
[2022-08-16 00:43] LABS: ALT (SGPT) 43 U/L (8-55); AST (SGOT) 28 U/L (5-34); Albumin 4.3 g/dL (3.5-5.0); Alkaline Phosphatase 91 U/L (40-110); Anion Gap 17 mmol/L (10-20); BUN (Urea Nitrogen) 7 mg/dL (7.0-18.7); Bilirubin, Total 1.2 mg/dL (0.2-1.2); Calc. Creatinine Clearance 0 mL/min (70-130); Calcium 9.5 mg/dL (7.8-10.44); Carbon Dioxide 23 mmol/L (22-29); Chloride 104 mmol/L (98-107); Estimated GFR 97; Globulin 3.8 g/dL (2.4-3.5); Glucose 112 mg/dL (70-105); Potassium 3.4 mmol/L (3.5-5.1); Protein, Total 8.1 g/dL (6.0-8.3); Sodium 141 mmol/L (136-145)
[2022-08-16] MEDS ORDERED: Acetaminophen 325 MG TAB PO PRN (00:59)
[2022-08-16] MEDS ORDERED: hydrALAZINE 20 MG/ML VIAL SLOW IVP PRN (00:59)
[2022-08-16] MEDS ORDERED: TETANUS, DIPHTHERIA TOX,ADULT (TDVAX) 0.5 ML VIAL IM ONE (00:59)
[2022-08-16] MEDS ORDERED: Ipratropium/Albuterol 3 ML NEB NEB PRN (00:59)
[2022-08-16] MEDS ORDERED: Ondansetron PF 4 MG/2 ML Vial IVP PRN (00:59)
[2022-08-16] MEDS ORDERED: Morphine 2 MG/ML VIAL SLOW IVP PRN (01:03)
[2022-08-16] MEDS ORDERED: traMADol HCl 50 MG TAB PO PRN (01:03)
[2022-08-16] MEDS ORDERED: Ketorolac Tromethamine 30 MG/ML VIAL ONE ×2 (01:18→09:58)
[2022-08-16] MEDS ORDERED: Ketamine In 0.9 % NaCl 50 MG/5 ML SYRINGE ONE (01:49)
[2022-08-16] MEDS ORDERED: Ketamine 50 MG/ML (10ML VIAL) ONE (01:50)
[2022-08-16] MEDS: Sodium Chloride 0.9% 1,000 ML IV SCH ×3 (04:10→14:11)
[2022-08-16] MEDS: traMADol HCl 50 MG TAB PO SCH ×4 (04:12→23:16)
[2022-08-16] MEDS: Cyclobenzaprine 10 MG TAB PO PRN ×3 (04:13→21:22)
[2022-08-16 04:33] VITALS: BMI 44.9
[2022-08-16 05:50] LABS: #Eosinphils 0.2 thou/uL (0.0-0.7); #Lymphocytes 1.8 thou/uL (1.20-3.40); #Monocytes 0.4 thou/uL (0.11-0.59); #Neutrophils 7.5 thou/uL (1.40-6.50); %Basophils 0.1 % (0.0-1.0); %Eosinophils 2.4 % (0.0-10.0); %Lymphocytes 18.2 % (21.0-51.0); %Monocytes 4.3 % (0.0-10.0); Hemoglobin 11.4 g/dL (12.0-16.0); Mean Corpuscular HGB CONC 33.1 g/dL (32.0-36.0); Mean Corpuscular Hemoglobin 28.3 pg (27.0-31.0); Mean Corpuscular Volume 85.7 fl (78.0-98.0); Mean Platelet Volume 8.1 fL (7.4-10.4); Platelet Count 224 10x3/uL (130-400); RBC Distribution Width 13.8 % (11.5-14.5); Red Blood Cell (RBC) Count 4.02 mill/uL (4.20-5.40)
[2022-08-16 05:55] LABS: PTT 29.1 sec (22.9-36.1)
[2022-08-16 06:13] LABS: Anion Gap 12 mmol/L (10-20); BUN (Urea Nitrogen) 10 mg/dL (7.0-18.7); Calc. Creatinine Clearance 201 mL/min (70-130); Calcium 8.4 mg/dL (7.8-10.44); Carbon Dioxide 23 mmol/L (22-29); Chloride 109 mmol/L (98-107); Estimated GFR 109; Glucose 107 mg/dL (70-105); Phosphorus 4.3 mg/dL (2.3-4.7); Potassium 3.5 mmol/L (3.5-5.1); Sodium 140 mmol/L (136-145)
[2022-08-16] MEDS ORDERED: CEFAZOLIN 2 GM in Sodium Chloride 0.9% 100 ML IVPB SCH (07:15)
[2022-08-16] MEDS: Famotidine/PF 20 mg/2ml Vial SLOW IVP SCH ×2 (09:32→21:01)
[2022-08-16] MEDS: Senokot S 8.6-50 MG TAB PO SCH ×2 (09:33→20:59)
[2022-08-16] MEDS: Polyethylene Glycol 3350 17 GM Packet PO SCH (09:33)
[2022-08-16] MEDS: Gabapentin 300 MG CAP PO SCH ×3 (09:33→20:58)
[2022-08-16] MEDS ORDERED: Sodium Chloride 0.9% 100 ML ONE (09:37)
[2022-08-16] MEDS ORDERED: fentaNYL PF 100 MCG/2 ML SYRINGE ONE (09:55)
[2022-08-16] MEDS ORDERED: HYDROmorphone 0.5 MG/0.5 ML SYRINGE ONE (09:56)
[2022-08-16] MEDS ORDERED: PROPOFOL 200 MG/20 ML VIAL ONE (09:58)
[2022-08-16] MEDS ORDERED: Lidocaine 1% PF 5 ML VIAL ONE (09:58)
[2022-08-16] MEDS ORDERED: Ondansetron PF 4 MG/2 ML Vial ONE (09:58)
[2022-08-16] MEDS ORDERED: Dexamethasone 20 MG/5 ML VIAL ONE (09:58)
[2022-08-16] MEDS ORDERED: Promethazine HCl 25 MG/ML VIAL IM PRN (11:29)
[2022-08-16] MEDS ORDERED: Ondansetron HCl/PF 4 MG/2 ML Vial IVP PRN (11:29)
[2022-08-16] MEDS ORDERED: HYDROmorphone 2 MG/ML VIAL SLOW IVP PRN (11:29)
[2022-08-16] MEDS: CEFAZOLIN 2 GM in Sodium Chloride 0.9% 100 ML IVPB SCH (17:12)
[2022-08-16] MEDS: Ketorolac Tromethamine 30 MG/ML VIAL IVP SCH ×2 (17:13→23:18)
[2022-08-16] MEDS: Acetaminophen 500 MG TAB PO SCH (23:17)
[2022-08-17] MEDS: CEFAZOLIN 2 GM in Sodium Chloride 0.9% 100 ML IVPB SCH ×2 (02:56→09:46)
[2022-08-17] MEDS: Acetaminophen 500 MG TAB PO SCH (06:20)
[2022-08-17] MEDS: Sodium Chloride 0.9% 1,000 ML IV SCH (06:20)
[2022-08-17] MEDS: traMADol HCl 50 MG TAB PO SCH ×3 (06:21→18:38)
[2022-08-17] MEDS: Ketorolac Tromethamine 30 MG/ML VIAL IVP SCH (06:22)
[2022-08-17 07:26] LABS: #Lymphocytes 1.6 thou/uL (1.20-3.40); #Monocytes 0.7 thou/uL (0.11-0.59); #Neutrophils 11.8 thou/uL (1.40-6.50); %Basophils 0.3 % (0.0-1.0); %Eosinophils 0.1 % (0.0-10.0); %Lymphocytes 11.2 % (21.0-51.0); %Monocytes 4.6 % (0.0-10.0); %Neutrophils 83.7 % (42.0-75.0); Mean Corpuscular HGB CONC 32.1 g/dL (32.0-36.0); Mean Corpuscular Hemoglobin 27.8 pg (27.0-31.0); Mean Corpuscular Volume 86.7 fl (78.0-98.0); Mean Platelet Volume 8.6 fL (7.4-10.4); Platelet Count 210 10x3/uL (130-400); RBC Distribution Width 13.8 % (11.5-14.5); Red Blood Cell (RBC) Count 3.96 mill/uL (4.20-5.40); White Blood Cell (WBC) Count 14.1 10x3/uL (4.8-10.8)
[2022-08-17] MEDS: Cyclobenzaprine 10 MG TAB PO PRN (07:39)
[2022-08-17] MEDS: Senokot S 8.6-50 MG TAB PO SCH ×2 (09:45→19:55)
[2022-08-17] MEDS: Gabapentin 300 MG CAP PO SCH ×3 (09:45→20:01)
[2022-08-17] MEDS: Polyethylene Glycol 3350 17 GM Packet PO SCH (09:45)
[2022-08-17] MEDS: Famotidine/PF 20 mg/2ml Vial SLOW IVP SCH ×2 (09:46→19:54)
[2022-08-17] MEDS: Ibuprofen 200 MG TAB PO SCH ×2 (12:55→19:53)
[2022-08-17] MEDS: Acetaminophen/Codeine 30-300mg Tablet PO SCH ×2 (12:56→19:53)
[2022-08-17] MEDS: Acetaminophen 325 MG TAB PO SCH (18:37)
[2022-08-18] MEDS: traMADol HCl 50 MG TAB PO SCH ×3 (00:28→12:47)
[2022-08-18] MEDS: Acetaminophen 325 MG TAB PO SCH ×4 (00:29→19:42)
[2022-08-18] MEDS: Acetaminophen/Codeine 30-300mg Tablet PO SCH ×4 (01:30→20:37)
[2022-08-18] MEDS: Ibuprofen 200 MG TAB PO SCH ×2 (03:05→12:42)
[2022-08-18] MEDS: Cyclobenzaprine 10 MG TAB PO PRN ×3 (03:10→20:39)
[2022-08-18] MEDS: Gabapentin 300 MG CAP PO SCH ×3 (09:37→20:38)
[2022-08-18] MEDS: Famotidine/PF 20 mg/2ml Vial SLOW IVP SCH ×2 (09:37→20:39)
[2022-08-18] MEDS: Polyethylene Glycol 3350 17 GM Packet PO SCH (09:38)
[2022-08-18] MEDS: Senokot S 8.6-50 MG TAB PO SCH ×2 (09:38→21:22)
[2022-08-18] MEDS ORDERED: Ketorolac Tromethamine 30 MG/ML VIAL IVP SCH (19:30)
[2022-08-19] MEDS: Acetaminophen 325 MG TAB PO SCH ×2 (00:03→05:02)
[2022-08-19] MEDS: Acetaminophen/Codeine 30-300mg Tablet PO SCH ×4 (04:57→17:23)
[2022-08-19] MEDS ORDERED: FLU VACC QS2022-23(6MO UP)/PF 60 MCG/0.5 ML SYRINGE IM ONE (09:00)
[2022-08-19] MEDS ORDERED: Ibuprofen 200 MG TAB PO PRN (09:34)
[2022-08-19] MEDS ORDERED: Bisacodyl 5 MG TAB PO SCH (09:45)
[2022-08-19] MEDS: Gabapentin 300 MG CAP PO SCH ×3 (09:54→21:22)
[2022-08-19] MEDS: Polyethylene Glycol 3350 17 GM Packet PO SCH (09:55)
[2022-08-19] MEDS: Senokot S 8.6-50 MG TAB PO SCH ×2 (09:55→21:24)
[2022-08-19] MEDS: traMADol HCl 50 MG TAB PO PRN ×2 (15:52→22:02)
[2022-08-19] MEDS: Cyclobenzaprine 10 MG TAB PO PRN (21:23)
[2022-08-20] MEDS: Acetaminophen/Codeine 30-300mg Tablet PO SCH ×4 (00:29→17:09)
[2022-08-20] MEDS: traMADol HCl 50 MG TAB PO PRN (04:25)
[2022-08-20] MEDS: Cyclobenzaprine 10 MG TAB PO PRN (06:25)
[2022-08-20] MEDS: Gabapentin 300 MG CAP PO SCH ×2 (08:56→17:10)
[2022-08-20] MEDS: Senokot S 8.6-50 MG TAB PO SCH (08:56)
[2022-08-20] MEDS: Polyethylene Glycol 3350 17 GM Packet PO SCH (08:58)
[2022-08-20 16:46] VITALS: BP 141/82; TEMP 98.3
== END 2022-08-20 18:58 | disposition home or self-care (01) | DRG 494 ==
LOC: ERS 23:45 → SURG B 08-16 00:48
PROVIDERS: ADMIT Surgery; ATTEND Surgery
PROC: 2W3LX1Z Immobilization of Right Lower Extremity using Splint (ICD-10-PCS; principal; 2022-08-16)
PROC: 0QSG04Z Reposition Right Tibia with Internal Fixation Device, Open Approach (ICD-10-PCS; 2022-08-16)
DX: S82.201B Unspecified fracture of shaft of right tibia, initial encounter for open fracture type I or II (principal); G43.909 Migraine, unspecified, not intractable, without status migrainosus; S82.401B Unspecified fracture of shaft of right fibula, initial encounter for open fracture type I or II; W19.XXXA Unspecified fall, initial encounter; Z87.891 Personal history of nicotine dependence; Z88.5 Allergy status to narcotic agent; Y92.9 Unspecified place or not applicable
CPT/HCPCS: 29505; 36415; 80048; 80053; 83735; 84100; 84703; 85025; 85610; 85730; 90471; 90715; 93005; 96374; 96375; 96376; C1713; J1100; J1170; J1650; J1885; J2405; J2704; J3010; J3490; J7050; S0028